=== PATIENT | female | born 1930 | race Caucasian/White ===

== ENCOUNTER 2018-08-09 11:34 | Outpatient (CLI) | payer OTHER | END 2018-08-09 11:54 | disposition short-term general hospital (02) | LOC: AMBL 11:34 | PROVIDERS: ATTEND Family Medicine | DX: S01.01XA Laceration without foreign body of scalp, initial encounter (principal); M25.551 Pain in right hip; G30.9 Alzheimer's disease, unspecified; F02.80 Dementia in other diseases classified elsewhere, unspecified severity, without behavioral disturbance, psychotic disturbance, mood disturbance, and anxiety; W05.0XXA Fall from non-moving wheelchair, initial encounter; Y92.128 Other place in nursing home as the place of occurrence of the external cause; R40.2411 Glasgow coma scale score 13-15, in the field [EMT or ambulance] ==

== ENCOUNTER 2018-10-09 16:35 | Outpatient (CLI) ==
[2018-09-10 17:10] VITALS: BMI 20.3
== END 2018-10-09 16:36 | disposition home or self-care (01) ==
LOC: NONPT 16:35
PROVIDERS: ATTEND Emergency Medicine
DX: N39.0 Urinary tract infection, site not specified (principal)
CPT/HCPCS: 81001; 87086